=== PATIENT | female | born 1975 | race Caucasian/White ===

== ENCOUNTER 2025-01-13 00:58 | Observation (INO) | payer BC, SELFPAY ==
[2025-01-12 16:06] VITALS: BP 139/92
[2025-01-12 16:32] LABS: Hematocrit 38.6 % (37.0-47.0); Hemoglobin 13.2 g/dL (12.0-16.0); Mean Corp Hgb Conc. 34.2 g/dL (33.0-37.0); Mean Corpuscular Volume 85.0 fL (81.0-99.0); Nucleated Red Blood Cells % 0.6 %; Platelet Count 383 10^3/uL (130-400); Red Cell Dist. Width 12.5 % (11.5-14.5)
[2025-01-12 16:36] LABS: HCG, Serum Qualitative Screen Negative
[2025-01-12 16:41] LABS: ALT (SGPT) 26 U/L (0-35); AST (SGOT) 25 U/L (14-36); Albumin 5.0 g/dl (3.5-5.0); Alkaline Phosphatase 59 U/L (38-126); Blood Urea Nitrogen 16 mg/dl (7-17); Calcium 9.6 mg/dl (8.4-10.2); Carbon Dioxide 25 mmol/L (22-30); Chloride 103 mmol/L (98-107); Glucose 214 mg/dl (70-99); Potassium 4.6 mmol/L (3.5-5.1); Sodium 139 mmol/L (135-145); Total Protein 7.7 g/dl (6.3-8.2); eGFR > 60.00
[2025-01-12 19:21] VITALS: BP 154/87; BMI 35.5
--- NOTE | 2025-01-12 19:38 | ED.GENMED ---
History of Present Illness
<Marjorie Barragan PA-C - Last Filed: 01/13/25 04:34>
General
Chief Complaint: Eye Problems
Source: patient
Exam Limitations: none
Time Seen by Provider: 01/12/25 19:25
Nursing documentation reviewed up to this point in time: agreed with
History of Present Illness
History of Present Illness:
Note:
CHIEF COMPLAINT(S)
Right eye swelling with associated rash.
HISTORY OF PRESENT ILLNESS
The patient is a 49-year-old female history of hypertension, hyperlipidemia, hypertrophic cardio myopathy, diabetes, presenting with swelling of the right eye and a rash. Symptoms began yesterday morning with mild eye swelling, which initially
improved throughout the day but worsened overnight. By this morning, the rash extended from the patients arms to the face, including the forehead. The patient noted 'little blisters' accompanying the rash. No fever was reported. The patient denies
blurry vision and difficulty swallowing, but mentions some pain and clear tearing from the eye. Itching and pain in the right ear were also noted, with the patient describing the most discomfort as a headache originating from the eye. The patient
has received erythromycin ointment prescribed for the eye but has not taken any oral antibiotics. She denies any fevers or chills.
PHYSICAL EXAM
- Note: Nursing notes reviewed and vital signs reviewed.
General: Patient is well appearing and in no acute distress; non-toxic
Skin: Warm and dry, no rashes or lesions
Head: Normocephalic, atraumatic
Eyes: Sclera non-icteric. EOMs intact. No fluorescein uptake in the right eye.
Mouth: No tongue or lip swelling. Uvula midline. No pharyngeal erythema.
Cardiac: Regular rate and rhythm, no murmurs
Peripheral Vascular: No lower extremity swelling or edema.
Pulm: Normal respiratory effort, no wheezes, rales, rhonchi
Neuro: CN II-XII intact, no focal neurologic deficits.
Psychiatric: Appropriate mood and affect.
REVIEW OF SYSTEMS
- Dermatologic: Rash on face and arms.
- Ocular: Right eye swelling, clear tearing, pain with eye movements.
- Neurologic: Headache originating from the eye.
- Ear, Nose, and Tongue: Right ear itching.
PLAN
- Initiate intravenous access and administer analgesia and anti-inflammatory medication (morphine trial).
- Conduct a CAT scan to assess for any deeper infection or abscess.
- Apply numbing drops to assess the eye and consider herpes zoster with ocular involvement.
- Consider differential diagnoses such as facial cellulitis, contact dermatitis, or shingles.
- Plan for pain management and further evaluation pending imaging results.
DIFFERENTIAL DIAGNOSIS
The Differential Diagnosis includes, in no particular order and is not limited to:
1. Facial cellulitis
2. Shingles (Herpes Zoster Ophthalmicus)
3. Contact dermatitis
4. Conjunctivitis
5. Allergic reaction
6. Impetigo
7. Blepharitis
8. Erysipelas
9. Periorbital cellulitis
10. Seborrheic dermatitis
CHART REVIEW
No prior ER physician documentation to review
MDM/DISPOSITION
The patient is a 49-year-old female history of hypertension, hyperlipidemia, hypertrophic cardio myopathy, diabetes, presenting with swelling of the right eye and a rash. There is scattered rash starting on the left side of the face as well as well
as the arms. She went for CAT scan of the orbits which was negative for intraorbital extension of infection, no evidence of abscess. No evidence of acute intracranial abnormality. Spoke with my attending physician. Rash is likely poison jessica
however considering poorly controlled diabetes and aggressive periorbital presentation will admit for IV antibiotics to cover for bacterial coinfection as well as observation.
Phy Exam
<Marjorie Barragan PA-C - Last Filed: 01/13/25 04:34>
Physical Exam
Physical Exam:
see hpi
Course
<Marjorie Barragan PA-C - Last Filed: 01/13/25 04:34>
Orders/Labs/Results
Orders:
Orders
01/12/25 16:12
Test Result ONCE
01/12/25 16:16
Complete Blood Count/With Diff Urgent
Comprehensive Metabolic Panel Urgent
HCG, Serum Qualitative Screen Urgent
01/12/25 19:37
Ondansetron Orally Disint [Zofran Odt (Orally Disintegrating)] 4 mg PO NOW STA
01/12/25 19:58
CT Head W/o Iv Contrast Urgent
Comment:
Reason For Exam: right headed headache
CT Orbits With Iv Contrast Urgent
Comment:
Reason For Exam: right eye pain, pre septal cellulitis
01/12/25 19:59
0.9% Sodium Chloride 500 ml [Nss] 500 ml IV BOLUS
Morphine Sulfate 4 mg IV NOW STA
01/12/25 21:58
Dexamethasone Sod Phosphate [Decadron] 10 mg IV NOW STA
HydrOXYZINE [Atarax] 25 mg PO NOW STA
01/12/25 23:45
Clindamycin Phosphate [Cleocin] 300 mg 0.9% Sodium Chloride [Nss] 50 ml IV ONCE
01/13/25 00:18
Acetaminophen [Tylenol] 1,000 mg PO NOW STA
01/13/25 00:20
Diphenhydramine [Benadryl] 25 mg IV NOW STA
01/13/25 00:29
Admit/Transfer Patient As Directed
Co-Sign Provider:
Level of Care: Observation services
Assign to:: Medical/Surgical
Physician / Group: Leonel
Diagnosis: Rash
01/13/25 00:30
PRN Pain Medication Management As Directed
May give lesser potent ordered pain med per pt: Yes
preference::
Protocol:: Medication orders for pain may be administered in a
manner that supports deferring to patient preference
when the pt is:
- Requesting an ordered lesser potent pain medication.
Least to most potent pain medications are defined
as: acetaminophen < NSAID < tramadol < opioids
(morphine, oxycodone, hydromorphone).
- Requesting a lesser dose of the same medication IF
ORDERED.
- Requesting a less intrusive route of administration
if both routes are prescribed by the provider (PO <
IV).
01/13/25 00:31
Code Status As Directed
Resuscitation Status: Full Code
01/13/25 02:03
Acetaminophen [Tylenol] 650 mg PO Q4HPRN PRN
Bisacodyl [Dulcolax] 10 mg RECTAL [id number] PRN
Diphenhydramine [Benadryl] 25 mg IV Q6HPRN PRN
Docusate W/Senna [Senokot-S] 1 tablet PO BIDPRN PRN
Morphine Sulfate 2 mg IV Q6HPRN PRN
Polyethylene Glycol Powder [Miralax] 17 grams PO DAILYPRN PRN
01/13/25 02:03
Activity As Directed
Activity Level: With Assistance
Bedside Glucose Monitoring As Directed
Frequency: AC&HS
Pneumatic Compression Sleeves As Directed
Type: Knee high
Vital Signs As Directed
Frequency: Per unit guidelines
Pulse Ox/spot Check [RESP] Routine
Quantity: 1
DX Deep Vein Thrombosis Video Routine
01/13/25 Breakfast
1800 calorie (15 carb) Diabetic
At Your Request: Full Participation
Basic Metabolic Panel IN AM
Complete Blood Count/No Diff IN AM
Clindamycin 600 mg/50 ml [Cleocin] 600 mg in 50 ml IV Q6H
Levothyroxine [Synthroid] 75 mcg PO DAILY @ 0600
01/13/25 07:30
Insulin Aspart Corrective Low [Novolog Flexpen-Low Resistance] See Protocol SC AC
01/13/25 08:00
Atorvastatin [Lipitor] 40 mg PO DAILY
Glipizide Extended Release [Glucotrol Xl (Extended Release)] 10 mg PO BID AT 0800,1700
Lamotrigine [Lamictal] 200 mg PO DAILY
Loratadine [Claritin] 10 mg PO DAILY
Losartan [Cozaar] 100 mg PO DAILY
METFORMIN HCl [Glucophage] 1,000 mg PO BID AT 0800,1700
Metoprolol Xl [Toprol Xl] 100 mg PO BID
Prednisone [Deltasone] 40 mg PO DAILY
Spironolactone [Aldactone] 25 mg PO DAILY
Verapamil Extended Release [Calan Extended Release] 120 mg PO DAILY
01/13/25 18:00
insulin glargine [Lantus Solostar U-100 Insulin] 10 unit SC QPM
Abnormal Lab Results
01/12/25
16:16
Abs Immat Gran (auto) 0.1 H 10^3/uL
(0-0.05)
Immature Gran % 1.7 H %
(0-0.5)
Glucose 214 H mg/dl
(70-99)
01/12/25 16:16
01/12/25 16:16
Vital Signs
Initial and Last Documented VS:
Initial Vital Signs
Temp Pulse Resp BP Pulse Ox
98.7 F 98 18 139/92 95
01/12/25 16:06 01/12/25 16:06 01/12/25 16:06 01/12/25 16:06 01/12/25 16:06
Last Documented Vital Signs
Temp Pulse Resp BP Pulse Ox
98.3 F 73 20 123/73 95
01/13/25 02:05 01/13/25 02:05 01/13/25 02:05 01/13/25 02:05 01/13/25 02:05
<April Payne, DO - Last Filed: 01/12/25 22:08>
Orders/Labs/Results
Orders:
Orders
01/12/25 16:12
Test Result ONCE
01/12/25 16:16
Complete Blood Count/With Diff Urgent
Comprehensive Metabolic Panel Urgent
HCG, Serum Qualitative Screen Urgent
01/12/25 19:37
Ondansetron Orally Disint [Zofran Odt (Orally Disintegrating)] 4 mg PO NOW STA
01/12/25 19:58
CT Head W/o Iv Contrast Urgent
Comment:
Reason For Exam: right headed headache
CT Orbits With Iv Contrast Urgent
Comment:
Reason For Exam: right eye pain, pre septal cellulitis
01/12/25 19:59
0.9% Sodium Chloride 500 ml [Nss] 500 ml IV BOLUS
Morphine Sulfate 4 mg IV NOW STA
01/12/25 21:58
Dexamethasone Sod Phosphate [Decadron] 10 mg IV NOW STA
HydrOXYZINE [Atarax] 25 mg PO NOW STA
01/12/25 23:45
Clindamycin Phosphate [Cleocin] 300 mg 0.9% Sodium Chloride [Nss] 50 ml IV ONCE
01/13/25 00:18
Acetaminophen [Tylenol] 1,000 mg PO NOW STA
01/13/25 00:20
Diphenhydramine [Benadryl] 25 mg IV NOW STA
01/13/25 00:29
Admit/Transfer Patient As Directed
Co-Sign Provider:
Level of Care: Observation services
Assign to:: Medical/Surgical
Physician / Group: Leonel
Diagnosis: Rash
01/13/25 00:30
PRN Pain Medication Management As Directed
May give lesser potent ordered pain med per pt: Yes
preference::
Protocol:: Medication orders for pain may be administered in a
manner that supports deferring to patient preference
when the pt is:
- Requesting an ordered lesser potent pain medication.
Least to most potent pain medications are defined
as: acetaminophen < NSAID < tramadol < opioids
(morphine, oxycodone, hydromorphone).
- Requesting a lesser dose of the same medication IF
ORDERED.
- Requesting a less intrusive route of administration
if both routes are prescribed by the provider (PO <
IV).
01/13/25 00:31
Code Status As Directed
Resuscitation Status: Full Code
01/13/25 02:03
Acetaminophen [Tylenol] 650 mg PO Q4HPRN PRN
Bisacodyl [Dulcolax] 10 mg RECTAL [id number] PRN
Diphenhydramine [Benadryl] 25 mg IV Q6HPRN PRN
Docusate W/Senna [Senokot-S] 1 tablet PO BIDPRN PRN
Morphine Sulfate 2 mg IV Q6HPRN PRN
Polyethylene Glycol Powder [Miralax] 17 grams PO DAILYPRN PRN
01/13/25 02:03
Activity As Directed
Activity Level: With Assistance
Bedside Glucose Monitoring As Directed
Frequency: AC&HS
Pneumatic Compression Sleeves As Directed
Type: Knee high
Vital Signs As Directed
Frequency: Per unit guidelines
Pulse Ox/spot Check [RESP] Routine
Quantity: 1
DX Deep Vein Thrombosis Video Routine
01/13/25 Breakfast
1800 calorie (15 carb) Diabetic
At Your Request: Full Participation
Basic Metabolic Panel IN AM
Complete Blood Count/No Diff IN AM
Clindamycin 600 mg/50 ml [Cleocin] 600 mg in 50 ml IV Q6H
Levothyroxine [Synthroid] 75 mcg PO DAILY @ 0600
01/13/25 07:30
Insulin Aspart Corrective Low [Novolog Flexpen-Low Resistance] See Protocol SC AC
01/13/25 08:00
Atorvastatin [Lipitor] 40 mg PO DAILY
Glipizide Extended Release [Glucotrol Xl (Extended Release)] 10 mg PO BID AT 0800,1700
Lamotrigine [Lamictal] 200 mg PO DAILY
Loratadine [Claritin] 10 mg PO DAILY
Losartan [Cozaar] 100 mg PO DAILY
METFORMIN HCl [Glucophage] 1,000 mg PO BID AT 0800,1700
Metoprolol Xl [Toprol Xl] 100 mg PO BID
Prednisone [Deltasone] 40 mg PO DAILY
Spironolactone [Aldactone] 25 mg PO DAILY
Verapamil Extended Release [Calan Extended Release] 120 mg PO DAILY
01/13/25 18:00
insulin glargine [Lantus Solostar U-100 Insulin] 10 unit SC QPM
Abnormal Lab Results
01/12/25
16:16
Abs Immat Gran (auto) 0.1 H 10^3/uL
(0-0.05)
Immature Gran % 1.7 H %
(0-0.5)
Glucose 214 H mg/dl
(70-99)
01/12/25 16:16
01/12/25 16:16
Vital Signs
Initial and Last Documented VS:
Initial Vital Signs
Temp Pulse Resp BP Pulse Ox
98.7 F 98 18 139/92 95
01/12/25 16:06 01/12/25 16:06 01/12/25 16:06 01/12/25 16:06 01/12/25 16:06
Last Documented Vital Signs
Temp Pulse Resp BP Pulse Ox
98.3 F 73 20 123/73 95
01/13/25 02:05 01/13/25 02:05 01/13/25 02:05 01/13/25 02:05 01/13/25 02:05
<Marjorie Barragan PA-C - Last Filed: 01/13/25 04:34>
*Pulse Oximetry
SaO2: 96
Oxygen Mode of Delivery: Room air
Patient hypoxic: no
*Critical Care Note
Total Time (30-74mins, 75-104mins- exclusive of procedures): Not Applicable
ED Attending Note
<Marjorie Barragan PA-C - Last Filed: 01/13/25 04:34>
-
Portions of this chart may have been created with voice recognition software.� Occasional wrong word or��sound alike� substitutions may have occurred due to the inherent limitations of voice recognition software.
<April Payne DO - Last Filed: 01/12/25 22:08>
ED Attending Note
Patient seen and examined by attending physician: Yes
I performed the substantive portion of visit, reviewed & personally made and approve the management plan that is documented in note by myself or MAD[place].: Yes
I performed a history and physical exam of patient and discussed management with resident, I reviewed resident's note and agree with documented findings and plan of care.: Yes
ED Attending Note:
49-year-old female presents the ER for evaluation of severe pain in her right eye abruptly worsening since yesterday. Patient reports a profoundly itchy rash on her face and bilateral upper extremities. Symptoms started within the last 24 hours or
so. She denies specific sick contacts. She was outside attending a picnic on Wednesday. She states her blood sugars are usually well-controlled, she did not take her diabetes medication this morning. She denies fevers. She had started a topical
antibiotic ointment yesterday without any improvement. Vital signs reviewed, patient is awake, alert, appears uncomfortable but in no acute distress, diffuse erythema and swelling located to the right eyelid streaking to the right periorbital skin,
there is some scant crusting present at the lash line, no scleral injection noted patient has 2 areas of fine vesicles in a linear pattern present along the left jawline, she has a area of erythema with crust present on the right earlobe, she has 2
small patches of erythematous rash with crusted appearance present bilateral medial upper arms, GCS is 15, no increased work of breathing, mucous membranes moist. I discussed with patient concern given abrupt worsening of rash and orbital
involvement with her prior history of diabetes. I discussed with her clinical suspicion that she may have poison jessica as etiology of symptoms, although would be concern for bacterial superinfection given aggressive nature of symptoms. She agrees
with plan for IV antibiotics and admission overnight. Will give dose of steroids and Atarax for pruritus.
Discharge Plan
Departure
Patient Disposition: Admit
Date of Disposition: 01/12/25
Time of Disposition: 23:19
Admit to: Med/Surg
Presentation/result/management discussed w/ accepting MD/DO: Hospitalist
Patient with high blood pressure during this ER visit?: Yes
Condition: Fair
Discharge Problem:
Right sided facial pain, Rash
Interventions
Interventions:
*General Assessment Last Done: 01/12/25 16:06
*Neglect/Abuse Screening Last Done: 01/12/25 19:22
*ED- Fall Risk Assessment Last Done: 01/12/25 19:22
*Nursing Disposition Last Done: 01/13/25 01:56
Discharge Date and Time
Discharge Date/Time: 01/13/25 01:57
[2025-01-12] MEDS: ZOFRAN ODT (ORALLY DISINTEGRATING) 4 MG PO (19:48)
[2025-01-12 20:00] VITALS: BP 149/75
[2025-01-12] MEDS: MORPHINE SULFATE 4 MG IV (20:14)
[2025-01-12] MEDS: NSS 500 IV (20:15)
[2025-01-12 21:00] VITALS: BP 139/77
[2025-01-12 22:13] VITALS: BP 134/69
[2025-01-12] MEDS: ATARAX 25 MG PO (22:15)
[2025-01-12] MEDS: DECADRON 10 MG IV (22:15)
[2025-01-12 23:00] VITALS: BP 139/71
[2025-01-12] MEDS: CLEOCIN 52 MG IV (23:49)
[2025-01-13] VITALS: BP 129/60
--- NOTE | 2025-01-13 00:21 | HPS.HSE ---
Family Physician
-
Family Physician: Gabino Martell, DO
Chief Complaint
-
Rash with right eye swelling
History of Present Illness
This is a one 9-year-old male with past medical history of migraine headaches, hypothyroid, jso-polvlgx-aachexgxf diabetes, hypertension who presents to the emergency department with a rash and right eye swelling.
Patient reported that symptoms began 1 day ago and has rapidly progressed to hemoglobin and forehead as well. She reports generalized itching in that area. She has not had any fevers or chills. She denies any recent travels, antibiotic use or
hospitalizations.
In the emergency department she was afebrile with a temp of 98.7, blood pressure was 139/71 with pulse of 81 and she was satting at 98% on room air. CBC was unremarkable, electrolytes BUN/creatinine were normal. CT of the head and orbits showed
stranding and soft tissue density within the right periorbital soft tissue suggestive of cellulitis. No evidence of intraorbital extension or abscess. Mild stranding soft tissue within the superior medial left periorbital soft tissues, suggesting
cellulitis.
Medical History
Past Medical History
Past Medical History: Reports Other
Additional Past Medical History:
Muf-rdykddx-jwzbyaebf diabetes
Hypothyroid
Migraine
Hypertension
Hyperlipidemia
Past Surgical History: Reports Other
Social History
Tobacco: Non-smoker
Alcohol: None
Drug: None
Family History
Family History: Not pertinent
Allergies / Home Medications
Allergies reflects when Allergies were last updated in [facility].
Home Medications with original date entered in [facility]
Allergy/Medication List:
Allergies
Allergy/AdvReac Type Severity Reaction Status Date / Time
cefadroxil (From [facility] [place]) Allergy Unknown Verified 01/12/25 22:35
doxycycline Allergy Unknown Verified 01/12/25 22:35
vancomycin Allergy Unknown Verified 01/12/25 22:35
Home Medications
atorvastatin 40 mg tablet 40 mg PO DAILY 01/12/25
erythromycin 2 % lotion 1 ea topical DAILY 01/12/25
erythromycin 5 mg/gram (0.5 %) eye ointment 0.5 inch ophthalmic (eye) BID 01/12/25
fexofenadine 60 mg tablet 60 mg PO DAILY 01/12/25
glipizide 10 mg tablet, extended release 24 hr 10 mg PO BID 01/12/25
insulin glargine 100 unit/mL (3 mL) subcutaneous pen (Lantus Solostar U-100 Insulin) 10 unit SC QPM 01/12/25
lamotrigine 200 mg tablet 200 mg PO DAILY 01/12/25
levothyroxine 75 mcg tablet 75 mcg PO DAILY 01/12/25
losartan 100 mg tablet 100 mg PO DAILY 01/12/25
metformin 1,000 mg tablet 1,000 mg PO BID 01/12/25
metoprolol succinate 100 mg tablet,extended release 24 hr 100 mg PO BID 01/12/25
naltrexone 8 mg-bupropion 90 mg tablet,extended release 1 tab PO DAILY 01/12/25
rimegepant 75 mg disintegrating tablet 75 mg PO ONCE PRN migraines 01/12/25
spironolactone 25 mg tablet 25 mg PO DAILY 01/12/25
verapamil 120 mg tablet,extended release 120 mg PO DAILY 01/12/25
Review of Systems
-
Constitutional: Reports No Symptoms
EENT: Reports No Symptoms and Other (Rash)
Respiratory: Reports No Symptoms
Cardiac: Reports No Symptoms
Abdomen/GI: Reports No Symptoms
: Reports No Symptoms
Musculoskeletal: Reports No Symptoms
Skin: Reports No Symptoms
Neurological: Reports No Symptoms
Endocrine: Reports No Symptoms
Hematologic/Lymphatic: Reports No Symptoms
Psych: Reports No Symptoms
Physical Exam
Vital Signs
Vital Signs
Temp Pulse Resp BP Pulse Ox
98.7 F 81 20 139/71 93
01/12/25 16:06 01/12/25 19:25 01/12/25 19:25 01/12/25 23:00 01/12/25 23:30
Physical Exam
General: Well Developed
HEENT: NormoCephalic, Anicteric, Moist mucous membranes, PERRLA and Other (Periorbital rash bilaterally)
Respiratory: Clear
Cardiac: S1/S2 and Regular Rhythm
Breast: Deferred by me
GI: Soft, Non Tender, Non Distended and Normal Bowel Sounds
Rectal: Deferred by Provider
Genito-urinary: Deferred by me
Musculoskeletal: No Clubbing, No Cyanosis and No Edema
Skin: Rash
Neuro: Nonfocal/grossly intact and Cranial Nerves Intact
Hematologic/Lymphatic: No Lymphadenopathy
Laboratory Results
-
01/12/25 16:16
01/12/25 16:16
Laboratory Results
Total Bilirubin 0.5 mg/dl (0.2-1.3) 01/12/25 16:16
AST 25 U/L (14-36) 01/12/25 16:16
ALT 26 U/L (0-35) 01/12/25 16:16
Alkaline Phosphatase 59 U/L (38-126) 01/12/25 16:16
Data Reviewed
-
CT Scan: Report Reviewed by me
Lab Data: Labs Reviewed by me
Old Records: Reviewed
Impression/Plan
-
IMPRESSION:
Patient with likely development of poison jessica rash for the face and eyes. There is soft tissue edema in the bilateral periorbital regions but no intraorbital evidence of cellulitis or abscess. Cannot rule out preseptal cellulitis entirely.
Patient is afebrile and has no leukocytosis.
PLAN:
Rash - High suspicion for allergic dermatitis/poison IV and less likely cellulitis. Rash improving after steroids/benadryl
- admit to medsurg observation
- started clindamycin empirically, d/c in am if rash continues to improve
- benadryl prn for itching
- start oral prednisone taper at 40mg x 5 days then taper to 20 x 5 then 10 x 5
- pain control
DM II
- in setting of steroids will need close monitoring
- continue metformin bid
- lantus 10 hs
- insulin sliding scale
- continue glipizide
HTN
- continue metoprolol succinate
- continue spironolactone
- continue verapamil
DVT PPX- SCS
Code status - Full Code
[2025-01-13] MEDS: TYLENOL 1000 MG PO (00:23)
[2025-01-13] MEDS: BENADRYL 25 MG IV ×2 (00:24→10:17)
[2025-01-13 01:00] VITALS: BP 125/71
[2025-01-13 02:04] VITALS: BMI 34.7
[2025-01-13 02:05] VITALS: BP 123/73
[2025-01-13] MEDS: CLEOCIN 50 IV ×4 (05:17→23:37)
[2025-01-13] MEDS: SYNTHROID 75 MCG PO (05:18)
[2025-01-13] MEDS: MORPHINE SULFATE 2 MG IV ×2 (05:24→19:26)
[2025-01-13 07:00] VITALS: BP 123/60
[2025-01-13 07:23] LABS: Glucose - Point of Care 293 mg/dl (70-99)
[2025-01-13] MEDS: NOVOLOG FLEXPEN-LOW RESISTANCE 3 UNITS SC (07:56)
[2025-01-13] MEDS: CALAN EXTENDED RELEASE 120 MG PO (07:57)
[2025-01-13] MEDS: COZAAR 100 MG PO (07:57)
[2025-01-13] MEDS: CLARITIN 10 MG PO (07:57)
[2025-01-13] MEDS: ALDACTONE 25 MG PO (07:57)
[2025-01-13] MEDS: GLUCOTROL XL (EXTENDED RELEASE) 10 MG PO ×2 (07:57→17:34)
[2025-01-13] MEDS: DELTASONE 40 MG PO (07:57)
[2025-01-13] MEDS: GLUCOPHAGE 1000 MG PO ×2 (07:57→17:34)
[2025-01-13] MEDS: TOPROL XL 100 MG PO ×2 (07:57→19:27)
[2025-01-13] MEDS: LIPITOR 40 MG PO (07:58)
--- NOTE | 2025-01-13 09:08 | W.PN.HOSP.TC ---
Addendum entered and electronically signed by Duy Abraham MD 01/14/25 13:57:
Correction, it is her right orbit
Original Note:
Today's Communication/Plan
-
Probable discharge tomorrow
Assessment / Plan
Assessment / Plan
HPI: 49-year-old male with past medical history of migraine headaches, hypothyroid, xka-hfniial-rtmwszapv diabetes, hypertension who presents to the emergency department with a rash and right eye swelling.
Patient reported that symptoms began 1 day ago and has rapidly progressed to hemoglobin and forehead as well. She reports generalized itching in that area. She has not had any fevers or chills. She denies any recent travels, antibiotic use or
hospitalizations.
In the emergency department she was afebrile with a temp of 98.7, blood pressure was 139/71 with pulse of 81 and she was satting at 98% on room air. CBC was unremarkable, electrolytes BUN/creatinine were normal. CT of the head and orbits showed
stranding and soft tissue density within the right periorbital soft tissue suggestive of cellulitis. No evidence of intraorbital extension or abscess. Mild stranding soft tissue within the superior medial left periorbital soft tissues, suggesting
cellulitis.
#Probable contact allergic dermatitis of left orbit
No ocular involvement noted
Continue prednisone, clindamycin, Benadryl as needed
#Type 2 diabetes with expected steroid-induced hyperglycemia
Continue home glipizide 10 mg twice a day, metformin 1000 mg twice a day, Lantus 10 units every afternoon, sliding scale insulin
#Hyperlipidemia
Continue statin
#Essential hypertension
Continue verapamil, Toprol-XL, losartan
#Hypothyroidism
Continue Synthroid
#Obesity due to excess calories
Affects all aspects of care
DVT prophylaxis�SCDs
Full code
Physical Exam
General: No acute distress
HEENT: Normocephalic, Atraumatic, EOMI, MMM
Right-sided periorbital erythema, edema, maculopapular rash noted
Respiratory: Clear to Auscultation bilaterally
Cardiac: Normal S1/S2, Regular Rate and Rhythm
GI: Soft, Nontender, Nondistended, Normal Bowel Sounds
Extremities: No Clubbing, Cyanosis, or Edema
Neuro: Nonfocal/Grossly Intact
Anticipated Discharge: Within 24 hours
Subjective/Interval History
-
Date of Service: January 13, 2025
Objective Data
-
Labs:
Laboratory Results
01/13/25
06:00
WBC Pending
Hgb Pending
Hct Pending
Plt Count Pending
Sodium Pending
Potassium Pending
Chloride Pending
Carbon Dioxide Pending
BUN Pending
Creatinine Pending
Glucose Pending
Calcium Pending
Vital Signs:
Vital Signs
Temp Pulse Resp BP Pulse Ox
98.3 F 73 20 123/73 95
01/13/25 02:05 01/13/25 02:05 01/13/25 02:05 01/13/25 02:05 01/13/25 02:05
[2025-01-13 10:00] LABS: Hematocrit 37.2 % (37.0-47.0); Hemoglobin 12.5 g/dL (12.0-16.0); Mean Corp Hgb Conc. 33.6 g/dL (33.0-37.0); Mean Corpuscular Volume 85.5 fL (81.0-99.0); Platelet Count 363 10^3/uL (130-400); Red Cell Dist. Width 12.3 % (11.5-14.5)
[2025-01-13 10:28] LABS: Blood Urea Nitrogen 19 mg/dl (7-17); Calcium 10.0 mg/dl (8.4-10.2); Carbon Dioxide 25 mmol/L (22-30); Chloride 101 mmol/L (98-107); Estimated Creatinine Clearance 109 ml/min; Glucose 244 mg/dl (70-99); Potassium 4.8 mmol/L (3.5-5.1); Sodium 137 mmol/L (135-145); eGFR > 60.00
[2025-01-13] MEDS: TYLENOL 650 MG PO (10:40)
[2025-01-13 12:20] LABS: Glucose - Point of Care 163 mg/dl (70-99)
[2025-01-13] MEDS: NOVOLOG FLEXPEN-LOW RESISTANCE 1 UNITS SC (12:24)
[2025-01-13 15:00] VITALS: BP 125/64
[2025-01-13 16:59] LABS: Glucose - Point of Care 246 mg/dl (70-99)
[2025-01-13] MEDS: NOVOLOG FLEXPEN-LOW RESISTANCE 2 UNITS SC (17:33)
[2025-01-13] MEDS: LANTUS 0.1 UNITS SC (17:35)
[2025-01-13] MEDS: LAMICTAL 200 MG PO (17:47)
[2025-01-13 21:16] LABS: Glucose - Point of Care 208 mg/dl (70-99)
[2025-01-13 23:00] VITALS: BP 130/63
[2025-01-14] MEDS: SYNTHROID 75 MCG PO (06:25)
[2025-01-14] MEDS: CLEOCIN 50 IV ×2 (06:25→12:11)
[2025-01-14 07:00] VITALS: BP 136/68
[2025-01-14 07:42] LABS: Glucose - Point of Care 194 mg/dl (70-99)
[2025-01-14] MEDS: CLARITIN 10 MG PO (07:55)
[2025-01-14] MEDS: NOVOLOG FLEXPEN-LOW RESISTANCE 1 UNITS SC ×2 (07:55→12:10)
[2025-01-14] MEDS: CALAN EXTENDED RELEASE 120 MG PO (07:55)
[2025-01-14] MEDS: DELTASONE 40 MG PO (07:56)
[2025-01-14] MEDS: ALDACTONE 25 MG PO (07:56)
[2025-01-14] MEDS: TOPROL XL 100 MG PO (07:56)
[2025-01-14] MEDS: LIPITOR 40 MG PO (07:56)
[2025-01-14] MEDS: GLUCOTROL XL (EXTENDED RELEASE) 10 MG PO (07:56)
[2025-01-14] MEDS: GLUCOPHAGE 1000 MG PO (07:56)
[2025-01-14] MEDS: COZAAR 100 MG PO (07:56)
--- NOTE | 2025-01-14 08:46 | W.PN.HOSP.TC ---
Addendum entered and electronically signed by Duy Abraham MD 01/14/25 13:56:
Correction, it is her right orbit
Original Note:
Today's Communication/Plan
-
Discharge today
Assessment / Plan
Assessment / Plan
HPI: 49-year-old male with past medical history of migraine headaches, hypothyroid, [id number] diabetes, hypertension who presents to the emergency department with a rash and right eye swelling.
Patient reported that symptoms began 1 day ago and has rapidly progressed to hemoglobin and forehead as well. She reports generalized itching in that area. She has not had any fevers or chills. She denies any recent travels, antibiotic use or
hospitalizations.
In the emergency department she was afebrile with a temp of 98.7, blood pressure was 139/71 with pulse of 81 and she was satting at 98% on room air. CBC was unremarkable, electrolytes BUN/creatinine were normal. CT of the head and orbits showed
stranding and soft tissue density within the right periorbital soft tissue suggestive of cellulitis. No evidence of intraorbital extension or abscess. Mild stranding soft tissue within the superior medial left periorbital soft tissues, suggesting
cellulitis.
#Probable contact allergic dermatitis of left orbit
No ocular involvement noted
Improving on prednisone, clindamycin, Benadryl as needed
Medically stable for discharge on prednisone to complete a 7-day course, clindamycin to complete a 5-day course
Follow-up with PCP in 1 week
#Type 2 diabetes with expected steroid-induced hyperglycemia
Continue home glipizide 10 mg twice a day, metformin 1000 mg twice a day, Lantus 10 units every afternoon, sliding scale insulin
#Hyperlipidemia
Continue statin
#Essential hypertension
Continue verapamil, Toprol-XL, losartan
#Hypothyroidism
Continue Synthroid
#Obesity due to excess calories
Affects all aspects of care
DVT prophylaxis�SCDs
Full code
Physical Exam
General: No acute distress
HEENT: Normocephalic, Atraumatic, EOMI, MMM
Right-sided periorbital erythema, edema, maculopapular rash noted
Respiratory: Clear to Auscultation bilaterally
Cardiac: Normal S1/S2, Regular Rate and Rhythm
GI: Soft, Nontender, Nondistended, Normal Bowel Sounds
Extremities: No Clubbing, Cyanosis, or Edema
Neuro: Nonfocal/Grossly Intact
Anticipated Discharge: Today
Subjective/Interval History
-
Date of Service: January 14, 2025
Patient's rash around her right eye is much improved. She denies any pain in the area, does complain of itchiness. No fever, no vomiting.
Objective Data
-
Vital Signs:
Vital Signs
Temp Pulse Resp BP Pulse Ox
97.8 F 65 20 130/63 95
01/13/25 23:00 01/13/25 23:00 01/13/25 23:00 01/13/25 23:00 01/13/25 23:00
I&O
01/13/25 01/14/25 01/15/25
06:59 06:59 06:59
Intake Total 1730 / 1730
Balance 1730 / 1730
[2025-01-14 11:46] LABS: Glucose - Point of Care 194 mg/dl (70-99)
--- NOTE | 2025-01-14 12:34 | CM ---
it project manager reviewed patient's chart and patient was admitted under Observation, OBS letter completed and placed on chart, patient lives with he spouse and son in a 2 story home, patient is independent with adl's and ambulation, no dme, patient
drives, home no needs when stable.
PCP: Dr Gabino Martell
Pharmacy: [facility] Sneha Carmichael
[2025-01-14 12:51] VITALS: BP 128/76
--- NOTE | 2025-01-14 13:37 | W.DCSUMMARY ---
Discharge Summary
Discharge Data
Date of Admission: 01/13/25
Date of Discharge: 01/14/25
-
Pending Results: No
Hospital Course
Discharge diagnosis:
Probable contact dermatitis of right orbit and left arm
Type 2 diabetes
Hyperlipidemia
Hypertension
Hypothyroidism
Obesity due to excess calories
Head/orbits CT:
Stranding soft tissue density within the right periorbital soft tissues, suggesting cellulitis. No evidence for intraorbital extension. No evidence for abscess.
Mild stranding soft tissue within the superior medial left periorbital soft tissues, suggesting cellulitis.
Hospital course:
49-year-old female with a past medical history of diabetes, hypothyroidism, and hypertension was admitted for right sided periorbital rash and rash on her left arm. Patient describes the rash as itchy, denies pain. Denies blurry vision, or vision
changes. She had a head/orbit CT that showed mild stranding of the soft tissue of the medial right periorbital soft tissues suggesting cellulitis.
Patient was treated with prednisone and IV clindamycin. By the following day, she felt remarkably better. She is medically stable for discharge on prednisone 40 mg daily to complete a 7-day course, and clindamycin 300 mg 3 times daily to complete
a 5-day course. She needs to follow-up with her PCP in 1 week.
Disposition: Home self-care
Discharge planning: Required 38 minutes
Discharge Plan
-
Patient Disposition: Home (Routine Discharge)
Discharge Diagnosis/Procedures: Contact dermatitis
Condition: Good
Diet: Diabetic, Carb Controlled
Activity: As tolerated
Driving Restrictions: As prior to admission
Referrals:
Gabino Maretll DO [Family Provider, [facility]] - in less than 1 week
Prescriptions:
New
prednisone 20 mg Tablet
40 mg PO DAILY 5 Days Qty: 10 0RF
clindamycin HCl [Cleocin HCl] 300 mg capsule
300 mg PO TID 3 Days Qty: 9 0RF
triamcinolone acetonide 0.1 % ointment
1 applic topical TID Qty: 80 0RF
Rx Instructions:
Apply to left arm. Do not apply near the eye.
Continued
verapamil 120 mg Tablet Extended Release
120 mg PO DAILY
atorvastatin 40 mg Tablet
40 mg PO DAILY
lamotrigine 200 mg Tablet
200 mg PO DAILY
fexofenadine 60 mg Tablet
60 mg PO DAILY
glipizide 10 mg Tablet Extended Release 24hr
10 mg PO BID
metoprolol succinate 100 mg Tablet Extended Release 24 Hr
100 mg PO BID
spironolactone 25 mg Tablet
25 mg PO DAILY
levothyroxine 75 mcg Tablet
75 mcg PO DAILY
erythromycin 5 mg/gram (0.5 %) Ointment
0.5 inch OPHTHALMIC (EYE) BID
metformin 1,000 mg Tablet
1,000 mg PO BID
losartan 100 mg Tablet
100 mg PO DAILY
erythromycin 2 % Lotion
1 ea TOPICAL DAILY
insulin glargine [Lantus Solostar U-100 Insulin] 100 unit/mL (3 mL) Insulin Pen
10 unit SC QPM
naltrexone-bupropion 8-90 mg Tablet Extended Release
1 tab PO DAILY
rimegepant 75 mg Tablet,Disintegrating
75 mg PO ONCE PRN (Reason: migraines)
Discharge Orders:
Discharge Patient (As Directed); Ordered 01/14/25
Ordered By: Duy Abraham
Discharge Date and Time
Discharge Date/Time: 01/14/25 13:15
Print Language: TUVAL[place]
== END 2025-01-14 13:15 | disposition home or self-care (01) ==
LOC: 4 WEST ACU 00:58
PROVIDERS: Emergency Medicine; ADMITTING PHYSICIAN Internal Medicine; ATTENDING PHYSICIAN Family Medicine; EMERGENCY PHYSICIAN Emergency Medicine; FAMILY PHYSICIAN Family Medicine
DX: R21 Rash and other nonspecific skin eruption (principal); H57.11 Ocular pain, right eye; H57.89 Other specified disorders of eye and adnexa; H92.01 Otalgia, right ear; R51.9 Headache, unspecified; E11.65 Type 2 diabetes mellitus with hyperglycemia; E78.5 Hyperlipidemia, unspecified; I10 Essential (primary) hypertension; I42.2 Other hypertrophic cardiomyopathy; E03.9 Hypothyroidism, unspecified; E66.09 Other obesity due to excess calories; Z79.84 Long term (current) use of oral hypoglycemic drugs; Z79.4 Long term (current) use of insulin; Z88.1 Allergy status to other antibiotic agents; Z79.890 Hormone replacement therapy; Z68.34 Body mass index [BMI] 34.0-34.9, adult
CPT/HCPCS: 70450; 70481; 80048; 80053; 82962; 84703; 85025; 85027; 96361; 96365; 96375; 99285; G0378; Q9967